=== PATIENT | female | born 1990 | race African-American/Black ===

== ENCOUNTER 2019-05-26 02:45 | Inpatient (IN) | payer OTHER ==
[2019-05-26] MEDS ORDERED: DEXTROSE 5%-LACTATED RINGERS 1,000 ML IV SCH (04:05)
[2019-05-26 04:08] LABS: BASO % 0.5 % (0-2.0); EOS % 2.2 % (0-4.5); HEMATOCRIT 29.7 % (32.4-45.2); HEMOGLOBIN 9.6 GM/dL (10.7-15.3); LYMPH % 24.3 % (8-40); MCH 26.8 pg (25.7-33.7); MCHC 32.4 g/dl (32.0-36.0); MEAN CELL VOLUME 82.8 fl (80-96); MONO % 7.5 % (3.8-10.2); NEUT % 65.5 % (42.8-82.8); PLATELET COUNT 341 K/MM3 (134-434); RBC 3.59 M/mm3 (3.60-5.2); RDW 13.9 % (11.6-15.6); WHITE BLOOD COUNT 7.5 K/mm3 (4.0-10.0)
[2019-05-26 04:20] LABS: INR 0.96 (0.83-1.09); PROTHROMBIN TIME (PATIENT) 11.3 SEC (9.7-13.0)
[2019-05-26 04:23] LABS: ACTIVATED PTT 27.7 SECONDS (25.2-36.5)
[2019-05-26 04:33] LABS: BLOOD UREA NITROGEN 4.8 mg/dL (7-18); CALCIUM 8.7 mg/dL (8.5-10.1); CREATININE 0.5 mg/dL (0.55-1.3); POTASSIUM 3.3 mmol/L (3.5-5.1)
[2019-05-26 04:50] VITALS: BMI 27.4
[2019-05-26] MEDS ORDERED: OXYTOCIN 30 UNITS in 0.9% NS 30 UNIT/500 ML INFUS.BAG IVPB ONE (06:25)
[2019-05-26] MEDS ORDERED: OXYTOCIN 30 UNITS in 0.9% NS 30 UNIT/500 ML INFUS.BAG IVPB SCH ×2 (06:30→09:15)
[2019-05-26 08:35] LABS: POC NITRAZINE POS
[2019-05-26] MEDS ORDERED: ELECTROLYTE-148 SOLN 1,000 ML IV SCH (09:15)
[2019-05-26] MEDS ORDERED: BUTORPHANOL TARTRATE 1 MG/ML VIAL IVPB ONE ×2 (09:15→10:45)
--- NOTE | 2019-05-26 09:15 | HP ---
Past Medical History - Primary Care Physician PCP:: Barbra Olson - Admission Chief Complaint: 28yo P1 @ 37 5/7 wks with LOF, occasional ctx, pos. FM. no VB, History of Present Illness: 1. Transfer care at 13 wks 2. TDap given History Source: Patient, Medical Record Limitations to Obtaining History: No Limitations - Past Medical History ...: 3 ...Para: 1 ...Induced : 1 ...LMP: 08/15/18 ... Weeks Gestation by Dates: 40.3 ...EDC by Dates: 05/22/19 ...EDC by Sono: 06/11/19 - Past Surgical History Past Surgical History: Yes: None Hx Myomectomy: No Hx Transabdominal Cerclage: No - Smoking History Smoking history: Never smoked Aproximately how many cigarettes per day: 5 - Alcohol/Substance Use Hx Alcohol Use: No Home Medications - Allergies Allergies/Adverse Reactions: Allergies Allergy/AdvReac Type Severity Reaction Status Date / Time No Known Allergies Allergy Verified 06/20/13 21:38 - Home Medications Home Medications: Ambulatory Orders Vits96/Iron Fum/Folic [ Tablet] 1 tablet PO DAILY 03/19/19 Review of Systems - Review of Systems Constitutional: reports: No Symptoms Eyes: reports: No Symptoms HENT: reports: No Symptoms Neck: reports: No Symptoms Cardiovascular: reports: No Symptoms Respiratory: reports: No Symptoms Gastrointestinal: reports: No Symptoms Genitourinary: reports: Other (lof) Breasts: reports: No Symptoms Reported Musculoskeletal: reports: No Symptoms Integumentary: reports: No Symptoms Neurological: reports: No Symptoms Endocrine: reports: No Symptoms Hematology/Lymphatic: reports: No Symptoms Physical Exam - Maternity Vital Signs: Vital Signs Temperature 98.6 F 05/26/19 08:00 Pulse Rate 88 05/26/19 08:00 Respiratory Rate 20 05/26/19 08:00 Blood Pressure 108/69 05/26/19 08:00 O2 Sat by Pulse Oximetry (%) Constitutional: Yes: Well Nourished, No Distress, Calm Eyes: Yes: WNL, Conjunctiva Clear HENT: Yes: WNL, Atraumatic, Normocephalic Neck: Yes: WNL, Supple, Trachea Midline Cardiovascular: Yes: WNL, Regular Rate and Rhythm Lungs: Clear to auscultation Breast(s): Yes: WNL - Abdominal Exam/OB Fundal Height: 38 (EFW 7.5lb) Presentation: Vertex Contractions: Yes Regularity: Irregular Intensity: Mild Monitor Mode: External Heart Rate (range): 130 Heart Rate Location: Midline Category: I Accelerations: Uniform Decelerations: None - Vaginal Exam/OB Vaginal Bleediing: No Dilatation (cm): 3 Effacement (%): 80 Amniotic Membrane Status: Ruptured (clear) Nitrazine Test: Positive Amniotic Fluid: Yes: Clear Presentation: Vertex/Position Station: -2 - Physical Exam Musculoskeletal: Yes: WNL Extremities: Yes: WNL Edema: No Integumentary: Yes: WNL ...Motor Strength: WNL - Labs Lab Results: CBC, BMP 05/26/19 03:45 05/26/19 03:45 Assessment/Plan 28yo P 1 @ 37.5wks with PROM, in early labor GBS neg - no need for Abx prophylaxis Admit to L&D IVF, Labs Start augmentation with Pitocin Gynecoid pelvis Anticipate
[2019-05-26] MEDS ORDERED: BUTORPHANOL TARTRATE 1 MG/ML VIAL ONE ×4 (10:40→14:09)
[2019-05-26] MEDS ORDERED: PROMETHAZINE HCL 25 MG/1 ML VIAL IVPB ONE ×2 (10:45→14:30)
[2019-05-26] MEDS ORDERED: PROMETHAZINE HCL 25 MG/1 ML VIAL ONE ×2 (10:49→14:09)
[2019-05-26] MEDS ORDERED: BUTORPHANOL TARTRATE 2 MG/ML VIAL IVPB ONE (14:30)
[2019-05-26] MEDS ORDERED: OXYTOCIN 20 UNITS in 0.9% NS 20 UNIT/1,000 ML INFUS.BAG IV ONE (14:40)
[2019-05-26] MEDS ORDERED: LIDOCAINE HCL 1% PRESERVATIVE FREE - 30ML VIAL ONE (15:16)
--- NOTE | 2019-05-26 15:16 | CONSULT ---
Past Medical History, Laborist - Admission Chief Complaint: In labor, uncomfortable. Para 1, 37+ wks of gestation. - Past Medical History ...: 3 ...Para: 1 ...Induced : 1 ...LMP: 08/15/18 ... Weeks Gestation by Dates: 40.3 ...EDC by Dates: 05/22/19 ...EDC by Sono: 06/11/19 - Smoking History Smoking history: Never smoked Aproximately how many cigarettes per day: 5 - Alcohol/Substance Use Hx Alcohol Use: No Physical Exam - Maternity Vital Signs: Vital Signs Temperature 98.5 F 05/26/19 14:00 Pulse Rate 82 05/26/19 14:00 Respiratory Rate 20 05/26/19 14:00 Blood Pressure 115/60 05/26/19 14:00 O2 Sat by Pulse Oximetry (%) - Abdominal Exam/OB Number of Fetuses: Single Presentation: Vertex Contractions: Yes Regularity: Regular Intensity: Moderate (Tolerating ctx, on Stadol) Monitor Mode: External Category: I Accelerations: Uniform Decelerations: None - Vaginal Exam/OB Vaginal Bleediing: No Dilatation (cm): 10 Effacement (%): 100 Amniotic Membrane Status: Ruptured Presentation: Vertex/Position Station: +3 (Ready to push. SUDEEP Expecting Dr. Boss's arrival. NVD is imminent.) - Labs Lab Results: CBC, BMP 05/26/19 03:45 05/26/19 03:45 Assessment/Plan Ass/Plan: Fully dilated, ready to push. Expecting PCP's arrival and imminent . Patient reassured.
[2019-05-26] MEDS: OXYTOCIN 20 UNITS in 0.9% NS 20 UNIT/1,000 ML INFUS.BAG IV SCH ×2 (15:30→20:47)
[2019-05-26] MEDS ORDERED: BISACODYL 10 MG SUPP.RECT RC PRN ×2 (16:32→16:55)
[2019-05-26] MEDS ORDERED: WITCH HAZEL 50% (TUCKS) 40 PAD/JAR PAD TP PRN ×2 (16:32→16:55)
[2019-05-26] MEDS ORDERED: ACETAMINOPHEN 325 MG TABLET (FP) PO PRN ×2 (16:32→16:55)
[2019-05-26] MEDS ORDERED: BENZOCAINE 20% 57 GM BOTTLE TP PRN ×2 (16:32→16:55)
[2019-05-26] MEDS ORDERED: BENZOCAINE 28 GM HEMORRHOIDAL OINTMENT TP PRN ×2 (16:32→16:55)
[2019-05-26] MEDS ORDERED: METHYLERGONOVINE MALEATE 0.2 MG/1 ML AMP IM PRN ×2 (16:32→16:55)
[2019-05-26] MEDS ORDERED: IBUPROFEN 600 MG TABLET (FP) PO PRN ×2 (16:32→16:55)
[2019-05-26] MEDS ORDERED: D5W-LR W/ 20 UNITS OXYTOCIN 20 UNIT/1,000 ML INFUS.BAG IV SCH (17:00)
[2019-05-26] MEDS: FERROUS SO4 325 MG TABLET (FP) PO SCH (22:00)
--- NOTE | 2019-05-26 22:29 | PN ---
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
--- NOTE | 2019-05-27 06:51 | PN ---
Post Progress Note - Subjective Subjective: Pt is doing well. Ambulating. Post Day: 1 Type of Delivery: Vital Signs: Vital Signs Temperature 98.9 F 05/27/19 06:00 Pulse Rate 106 H 05/27/19 06:00 Respiratory Rate 18 05/27/19 06:00 Blood Pressure 102/60 05/27/19 06:00 O2 Sat by Pulse Oximetry (%) 100 05/26/19 16:15 Breast Exam: Yes: Soft Uterus: Yes: Fundus Firm, Fundus below umbilicus, Non-tender Incision: Yes: Dressing dry and intact Abdomen/GI: Yes: Abdomen soft, Passing flatus, Tolerating PO Lochia: Yes: Rubra Lochia, amount: Small Extremities: Yes: Calves non-tender Perineum: Yes: Intact Activity: Ambulating - Labs Labs: CBC WBC 7.5 K/mm3 (4.0-10.0) 05/26/19 03:45 RBC 3.59 M/mm3 (3.60-5.2) L 05/26/19 03:45 Hgb 9.6 GM/dL (10.7-15.3) L 05/26/19 03:45 Hct 29.7 % (32.4-45.2) L D 05/26/19 03:45 MCV 82.8 fl (80-96) 05/26/19 03:45 MCH 26.8 pg (25.7-33.7) 05/26/19 03:45 MCHC 32.4 g/dl (32.0-36.0) 05/26/19 03:45 RDW 13.9 % (11.6-15.6) 05/26/19 03:45 Plt Count 341 K/MM3 (134-434) D 05/26/19 03:45 MPV 8.0 fl (7.5-11.1) D 05/26/19 03:45 Absolute Neuts (auto) 4.9 K/mm3 (1.5-8.0) 05/26/19 03:45 Neutrophils % 65.5 % (42.8-82.8) D 05/26/19 03:45 Lymphocytes % 24.3 % (8-40) D 05/26/19 03:45 Monocytes % 7.5 % (3.8-10.2) 05/26/19 03:45 Eosinophils % 2.2 % (0-4.5) 05/26/19 03:45 Basophils % 0.5 % (0-2.0) 05/26/19 03:45 Nucleated RBC % 0 % (0-0) 05/26/19 03:45 Assessment/Plan 28yo P2 s/p dong well. Ambulation encouraged. Asymptomatic for anemia Continue routine care.
[2019-05-27 07:44] LABS: BASO % 0.2 % (0-2.0); EOS % 0.8 % (0-4.5); HEMATOCRIT 26.1 % (32.4-45.2); HEMOGLOBIN 8.7 GM/dL (10.7-15.3); LYMPH % 18.1 % (8-40); MCH 27.3 pg (25.7-33.7); MCHC 33.2 g/dl (32.0-36.0); MEAN CELL VOLUME 82.4 fl (80-96); MEAN PLT VOLUME 7.9 fl (7.5-11.1); NEUT % 71.9 % (42.8-82.8); PLATELET COUNT 284 K/MM3 (134-434); RBC 3.17 M/mm3 (3.60-5.2); RDW 14.1 % (11.6-15.6)
[2019-05-27] MEDS: PRENATAL VITAMINS W/ FOLIC ACID TABLET (FP) PO SCH (09:28)
[2019-05-27] MEDS: FERROUS SO4 325 MG TABLET (FP) PO SCH ×2 (09:28→21:30)
--- NOTE | 2019-05-27 15:21 | DS ---
Physical Exam-[employer] Vital Signs: Vital Signs Temperature 98.3 F 05/27/19 13:06 Pulse Rate 98 H 05/27/19 13:06 Respiratory Rate 18 05/27/19 13:06 Blood Pressure 118/77 05/27/19 13:06 O2 Sat by Pulse Oximetry (%) 100 05/26/19 16:15 Constitutional: Yes: Well Nourished, No Distress, Calm Eyes: Yes: WNL, Conjunctiva Clear HENT: Yes: WNL, Atraumatic, Normocephalic Neck: Yes: WNL, Supple, Trachea Midline Cardiovascular: Yes: WNL, Regular Rate and Rhythm Respiratory: Yes: WNL, Regular, CTA Bilaterally Gastrointestinal: Yes: WNL, Normal Bowel Sounds, Soft ...Rectal Exam: Yes: Deferred Renal/: Yes: WNL Internal Exam Deferred: Yes ....Post : Yes: Uterus firm, Uterus non-tender, Slight lochia rubra Breast(s): Yes: WNL Musculoskeletal: Yes: WNL Extremities: Yes: WNL Edema: Yes Edema: LLE: Trace, RLE: Trace Integumentary: Yes: WNL Neurological: Yes: WNL, Alert, Oriented ...Motor Strength: WNL Psychiatric: Yes: WNL, Alert, Oriented Labs: CBC, BMP 05/27/19 07:07 05/26/19 03:45 Delivery - Delivery Vaginal Delivery: No Problems, Spontaneous Type of Anesthesia: Local Episiotomy/Laceration: Perineal Extension/lac, 2nd degree EBL (cc): 300 Delivery, Single - Stages of Labor Date 1st Stage Initiatied: 05/26/19 Time 1st Stage Initiated: 10:50 Date 2nd Stage Initiated: 05/26/19 Time 2nd Stage Initiated: 15:00 Date of Delivery: 05/26/19 Time of Delivery: 15:13 Time Placenta Delivered: 15:15 Placenta: Yes: Spontaneous, Normal Configuration - Condition of Infant Tool 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 Discharge Summary Problems reviewed: Yes Reason For Visit: LABOR Labor at term Procedures: Principal: Hospital Course: Normal labor, delivery, and care. Plan of Treatment: care Goals: Well mother and baby Condition: Good - Instructions Diet, Activity, Other Instructions: Regular - Home Medications Comprehensive Discharge Medication List: Ambulatory Orders Vits96/Iron Fum/Folic [ Tablet] 1 tablet PO DAILY 03/19/19 Prescription Drug Monitoring Program (I-STOP) results: I-STOP not reviewed
[2019-05-27] MEDS ORDERED: SENNOSIDES/DOCUSATE COMBO (SENNA PLUS) TABLET (UD) PO PRN ×2 (16:32→22:00)
--- NOTE | 2019-05-28 00:36 | PN ---
Post Progress Note - Subjective Subjective: Patient without acute complaints. Reports tolerating oral intake without nausea or vomiting. Ambulating without dizziness. Denies fevers or chills. Pain well controlled with oral pain medication. without difficulty. Passing flatus. Post Day: 2 Type of Delivery: Vital Signs: Vital Signs Temperature 98.5 F 05/27/19 21:04 Pulse Rate 100 H 05/27/19 21:04 Respiratory Rate 20 05/27/19 21:04 Blood Pressure 116/70 05/27/19 21:04 O2 Sat by Pulse Oximetry (%) 100 05/26/19 16:15 Breast Exam: Yes: Engorged Uterus: Yes: Fundus Firm, Fundus below umbilicus Abdomen/GI: Yes: Abdomen soft, Passing flatus, Tolerating PO. No: Abdominal Distention, Tender Lochia: Yes: Rubra Extremities: Yes: Calves non-tender. No: Edema Activity: Ambulating - Labs Labs: CBC WBC 11.0 K/mm3 (4.0-10.0) H 05/27/19 07:07 RBC 3.17 M/mm3 (3.60-5.2) L 05/27/19 07:07 Hgb 8.7 GM/dL (10.7-15.3) L 05/27/19 07:07 Hct 26.1 % (32.4-45.2) L 05/27/19 07:07 MCV 82.4 fl (80-96) 05/27/19 07:07 MCH 27.3 pg (25.7-33.7) 05/27/19 07:07 MCHC 33.2 g/dl (32.0-36.0) 05/27/19 07:07 RDW 14.1 % (11.6-15.6) 05/27/19 07:07 Plt Count 284 K/MM3 (134-434) 05/27/19 07:07 MPV 7.9 fl (7.5-11.1) 05/27/19 07:07 Absolute Neuts (auto) 7.9 K/mm3 (1.5-8.0) 05/27/19 07:07 Neutrophils % 71.9 % (42.8-82.8) 05/27/19 07:07 Lymphocytes % 18.1 % (8-40) D 05/27/19 07:07 Monocytes % 9.0 % (3.8-10.2) 05/27/19 07:07 Eosinophils % 0.8 % (0-4.5) 05/27/19 07:07 Basophils % 0.2 % (0-2.0) 05/27/19 07:07 Nucleated RBC % 0 % (0-0) 05/27/19 07:07 Assessment/Plan 28 yo PPD # 2 s/p , afebrile, vital signs stable, mild anemia 1. Patient stable for discharge home today. 2. Patient encouraged to contact MD for: - Severe pain not controlled by oral pain medication - Fevers or chills - Nausea or vomiting, intolerance of oral intake 3. Patient to follow up in office in 4-6 weeks for visit
[2019-05-28 08:27] LABS: BASO % 0.5 % (0-2.0); EOS % 2.3 % (0-4.5); HEMATOCRIT 25.4 % (32.4-45.2); HEMOGLOBIN 8.6 GM/dL (10.7-15.3); LYMPH % 27.2 % (8-40); MCH 27.9 pg (25.7-33.7); MCHC 33.7 g/dl (32.0-36.0); MEAN CELL VOLUME 82.6 fl (80-96); MEAN PLT VOLUME 7.9 fl (7.5-11.1); MONO % 6.6 % (3.8-10.2); NEUT % 63.4 % (42.8-82.8); PLATELET COUNT 290 K/MM3 (134-434); RBC 3.08 M/mm3 (3.60-5.2); RDW 13.9 % (11.6-15.6); WHITE BLOOD COUNT 8.1 K/mm3 (4.0-10.0)
[2019-05-28] MEDS: PRENATAL VITAMINS W/ FOLIC ACID TABLET (FP) PO SCH (09:11)
[2019-05-28] MEDS: FERROUS SO4 325 MG TABLET (FP) PO SCH (09:11)
[2019-05-28 09:29] VITALS: BP 108/74; PULSE 85; TEMP 98.3
== END 2019-05-28 12:20 | disposition home or self-care (01) | DRG 560 ==
LOC: JLDR 02:45 → J3W 16:45
PROVIDERS: ADMIT Obstetrics & Gynecology; ATTEND Obstetrics & Gynecology
PROC: 0KQM0ZZ Repair Perineum Muscle, Open Approach (ICD-10-PCS; principal; 2019-05-26)
PROC: 10E0XZZ Delivery of Products of Conception, External Approach (ICD-10-PCS; 2019-05-26)
DX: O70.1 Second degree perineal laceration during delivery (principal); Z3A.37 37 weeks gestation of pregnancy; Z37.0 Single live birth
CPT/HCPCS: 36415; 59409; 80048; 83986-QW; 85025; 85610; 85730; 86593; 86850; 86900; 86901